=== PATIENT | male | born 1975 | race Caucasian/White ===

== ENCOUNTER 2021-12-31 23:47 | Emergency (ER) | payer MEDICAID ==
[~2021-12-31] VITALS: Ht 162.6 cm; Wt 68.0 kg
[2022-01-01 03:59] LABS: BASOPHILS % 1.2 % (0.0-2.0); EOSINOPHILS % 3.4 % (0.0-5.0); HEMATOCRIT. 41.3 % (42.0-52.0); HEMOGLOBIN. 14.1 g/dL (14.0-18.0); LYMPHOCYTES % 28.4 % (20.0-50.0); MEAN CORPUSCULAR VOLUME 90.9 fL (80.0-94.0); MEAN PLATELET VOLUME 7.9 fl (7.4-10.4); PLATELET 312 x1000/uL (130-400); RED BLOOD CELL COUNT 4.54 mill/uL (4.7-6.1); RED CELL DISTRIBUTION WIDTH 14.5 % (11.6-14.6)
[2022-01-01 04:19] LABS: CHLORIDE 105 mEq/L (98-107)
[2022-01-01 04:29] LABS: ETHANOL BLOOD < 10 mg/dL
[2022-01-01 05:22] LABS: *AMPHETAMINES SCREEN URINE PRESUMTIVE POSITIVE (NEGATIVE); *BARBITURATES SCREEN URINE NEGATIVE (NEGATIVE); *BENZODIAZEPINES SCREEN URINE NEGATIVE (NEGATIVE); *COCAINE SCREEN URINE NEGATIVE (NEGATIVE); CANNABINOID URINE SCREEN PRESUMTIVE POSITIVE (NEGATIVE); METHADONE URINE SCREEN NEGATIVE (NEGATIVE); OPIATES URINE SCREEN NEGATIVE (NEGATIVE); PHENCYCLIDINE URINE SCREEN NEGATIVE (NEGATIVE)
[2022-01-01 07:01] LABS: CLARITY URINE CLEAR (CLEAR); COLOR URINE DARK YELLOW (YELLOW); KETONES URINE TRACE (NEGATIVE); LEUKOCYTE ESTERASE URINE TRACE (NEGATIVE); NITRITE URINE NEGATIVE (NEGATIVE); OCCULT BLOOD URINE NEGATIVE (NEGATIVE); PH URINE 5.5 (4.5-8.0); PROTEIN URINE 1+ (NEGATIVE); SPECIFIC GRAVITY URINE 1.047 (1.005-1.030)
[2022-01-01] MEDS ORDERED: POTASSIUM CHLORIDE 20MEQ TABLET SR PO ONE (07:15)
[2022-01-01] MEDS ORDERED: POTASSIUM CHLORIDE 20MEQ TABLET SR PO NR (09:32)
[2022-01-01] MEDS: DIVALPROEX SODIUM 250MG DR TABLET PO SCH ×2 (11:54→18:14)
[2022-01-01] MEDS: OLANZAPINE 10MG TABLET PO SCH ×2 (11:54→18:14)
[2022-01-02] MEDS: DIVALPROEX SODIUM 250MG DR TABLET PO SCH (09:07)
[2022-01-02] MEDS: OLANZAPINE 10MG TABLET PO SCH (09:08)
[2022-01-02 15:53] VITALS: BP 109/74
== END 2022-01-02 16:03 ==
LOC: ER 23:47
DX: F33.1 Major depressive disorder, recurrent, moderate (principal); R45.851 Suicidal ideations; R45.850 Homicidal ideations; R44.0 Auditory hallucinations; R44.1 Visual hallucinations; M79.671 Pain in right foot; F15.10 Other stimulant abuse, uncomplicated; F16.10 Hallucinogen abuse, uncomplicated; F12.90 Cannabis use, unspecified, uncomplicated; Z20.822 Contact with and (suspected) exposure to COVID-19; Z59.00 Homelessness unspecified; Z75.1 Person awaiting admission to adequate facility elsewhere
CPT/HCPCS: 36415; 80053; 80305; 80307; 80320; 80329; 81001; 85025; 99285; C9803; U0003; U0005; G0480

== ENCOUNTER 2023-12-02 13:49 | Emergency (ER) | payer MEDICAID ==
[~2023-12-02] VITALS: Ht 165.1 cm; Wt 90.7 kg
[2023-12-02 13:59] VITALS: O2SAT 99
[2023-12-02 14:14] VITALS: TEMP 98.3; O2SAT 97
[2023-12-02 15:57] VITALS: BP 127/94; PULSE 78; RESP 16
[2023-12-02] MEDS: IBUPROFEN 600MG TABLET PO ONE (15:57)
[2023-12-02] MEDS ORDERED: IBUP-2029 MT (16:06)
== END 2023-12-02 16:17 | disposition home or self-care (01) ==
LOC: ER 13:49
DX: S82.832A Other fracture of upper and lower end of left fibula, initial encounter for closed fracture (principal); F20.9 Schizophrenia, unspecified; X58.XXXA Exposure to other specified factors, initial encounter; Y93.01 Activity, walking, marching and hiking; Y92.89 Other specified places as the place of occurrence of the external cause; Y99.8 Other external cause status
CPT/HCPCS: 29515; 73610; 99283